=== PATIENT | female | born 2000 | race Two or more races ===

== ENCOUNTER 2024-09-11 09:44 | Emergency (ER) | payer OTHER ==
[~2024-09-11] VITALS: Ht 167.6 cm; Wt 81.6 kg
[2024-09-11] MEDS ORDERED: KETOROLAC TROMETHAMINE 60 MG VIAL IM STA (10:52)
== END 2024-09-11 11:12 | disposition home or self-care (01) ==
LOC: ER 09:45
DX: S91.209A Unspecified open wound of unspecified toe(s) with damage to nail, initial encounter (principal)